=== PATIENT | male | born 1995 | race Caucasian/White ===

== ENCOUNTER 2020-09-19 04:44 | Emergency (ER) | payer SELFPAY ==
[2020-09-19] MEDS ORDERED: Bupivacaine PF 0.5% 30 ML VIAL ONE (04:54)
[2020-09-19] MEDS ORDERED: Bacitracin 1 PK ONE (05:12)
== END 2020-09-19 05:38 | disposition home or self-care (01) ==
LOC: CSHERS 04:44
DX: S41.112A Laceration without foreign body of left upper arm, initial encounter (principal); F17.290 Nicotine dependence, other tobacco product, uncomplicated; W26.0XXA Contact with knife, initial encounter
CPT/HCPCS: 12004; S0020

== ENCOUNTER 2020-09-26 12:50 | Emergency (ER) | payer SELFPAY ==
[2020-09-26 22:30] LABS: SARS-CoV-2 PCR by NAA Not Detected (NotDetected)
== END 2020-09-26 13:20 | disposition home or self-care (01) ==
LOC: CSHERS 12:50
DX: S51.812D Laceration without foreign body of left forearm, subsequent encounter (principal); Z20.822 Contact with and (suspected) exposure to COVID-19; F17.290 Nicotine dependence, other tobacco product, uncomplicated
CPT/HCPCS: 87635; 99283; U0003; U0005

== ENCOUNTER 2021-11-07 10:35 | Emergency (ER) | payer SELFPAY ==
[2021-11-07] MEDS ORDERED: Dicyclomine 20 MG/2 ML VIAL ONE (12:26)
[2021-11-07] MEDS ORDERED: Ondansetron PF 4 MG/2 ML Vial ONE (12:26)
[2021-11-07 12:50] LABS: #Basophils 0.1 10x3/uL (0.0-0.2); #Eosinphils 0.3 10x3/uL (0.0-0.5); #Monocytes 0.7 10x3/uL (0.0-1.1); #Neutrophils 9.8 10x3/uL (1.5-8.4); %Basophils 0.6 % (0.0-2.0); %Eosinophils 1.8 % (0.0-6.0); %Lymphocytes 23.4 % (18.0-47.0); %Monocytes 5.2 % (0.0-10.0); %Neutrophils 68.6 % (40.0-75.0); Mean Corpuscular HGB CONC 34.2 g/dL (32.0-36.0); Mean Corpuscular Hemoglobin 28.7 pg (27.0-33.0); Mean Corpuscular Volume 84.1 fl (81.2-95.1); Mean Platelet Volume 9.8 fl (7.4-10.4); Platelet Count 265 10x3/uL (150-450); RBC Distribution Width 12.3 % (11.5-14.5); Red Blood Cell (RBC) Count 6.27 10x6/uL (4.32-5.72); White Blood Cell (WBC) Count 14.3 10x3/uL (3.5-10.5)
[2021-11-07 12:54] LABS: ALT (SGPT) 27 U/L (8-55); AST (SGOT) 14 U/L (5-34); Albumin 4.2 g/dL (3.5-5.0); Alkaline Phosphatase 80 U/L (40-110); Anion Gap 16 mmol/L (10-20); BUN (Urea Nitrogen) 8 mg/dL (8.9-20.6); Bilirubin, Total 0.4 mg/dL (0.2-1.2); Calc. Creatinine Clearance 0 mL/min (70-130); Calcium 9.2 mg/dL (7.8-10.44); Carbon Dioxide 24 mmol/L (22-29); Chloride 105 mmol/L (98-107); Globulin 2.3 g/dL (2.4-3.5); Glucose 94 mg/dL (70-105); Lipase 90 U/L (8-78); Potassium 3.8 mmol/L (3.5-5.1); Protein, Total 6.5 g/dL (6.0-8.3); Sodium 141 mmol/L (136-145)
[2021-11-07 13:50] LABS: Bilirubin Neg (Negative); Blood, Urine Negative (Negative); Clarity Clear (Clear); Glucose, Urine (Dipstick) Normal (Negative); Ketone, Urine Negative (Negative); Leukocyte Negative (Negative); Nitrite Negative (Negative); Protein, Urine (Dipstick) Negative (Neg-Trace); Urobilinogen Normal mg/dL (Less than 2)
== END 2021-11-07 14:20 | disposition home or self-care (01) ==
LOC: CSHERS 10:35
DX: R11.2 Nausea with vomiting, unspecified (principal); R10.9 Unspecified abdominal pain; R19.7 Diarrhea, unspecified; F17.290 Nicotine dependence, other tobacco product, uncomplicated
CPT/HCPCS: 80053; 81003; 83690; 85025; 96361; 96372; 96374; J0500; J2405

== ENCOUNTER 2021-12-22 19:51 | Emergency (ER) | payer OTHER, SELFPAY | END 2021-12-22 21:44 | disposition home or self-care (01) | LOC: CSHERS 19:51 | DX: S50.11XA Contusion of right forearm, initial encounter (principal); F17.290 Nicotine dependence, other tobacco product, uncomplicated; W01.0XXA Fall on same level from slipping, tripping and stumbling without subsequent striking against object, initial encounter ==

== ENCOUNTER 2022-03-26 03:53 | Emergency (ER) | payer SELFPAY | END 2022-03-26 04:41 | disposition home or self-care (01) | LOC: CSHERS 03:53 | DX: S01.111A Laceration without foreign body of right eyelid and periocular area, initial encounter (principal); F17.290 Nicotine dependence, other tobacco product, uncomplicated; W10.9XXA Fall (on) (from) unspecified stairs and steps, initial encounter | CPT/HCPCS: 12013 ==

== ENCOUNTER 2022-08-23 11:48 | Emergency (ER) | payer SELFPAY | END 2022-08-23 13:42 | disposition home or self-care (01) | LOC: CSHERS 11:48 | DX: J10.1 Influenza due to other identified influenza virus with other respiratory manifestations (principal); F17.290 Nicotine dependence, other tobacco product, uncomplicated | CPT/HCPCS: 71045; 87804; U0003; U0005 ==

== ENCOUNTER 2023-01-18 07:22 | Emergency (ER) | payer SELFPAY ==
[2023-01-18] MEDS ORDERED: Acetaminophen 325 MG TAB ONE (07:55)
[2023-01-18 09:18] LABS: SARS-CoV-2 NAA Rapid Test DETECTED (NotDetected)
== END 2023-01-18 09:42 | disposition home or self-care (01) ==
LOC: CSHERS 07:22
DX: U07.1 COVID-19 (principal); F17.290 Nicotine dependence, other tobacco product, uncomplicated
CPT/HCPCS: 87081; 87430; 99283

== ENCOUNTER 2023-04-24 08:07 | Emergency (ER) | payer SELFPAY ==
[2023-04-24 09:05] LABS: SARS-CoV-2 NAA Rapid Test Not Detected (NotDetected)
[2023-04-24] MEDS ORDERED: Naproxen 500 MG TAB ONE (09:25)
== END 2023-04-24 09:36 | disposition home or self-care (01) ==
LOC: CSHERS 08:07
DX: J11.1 Influenza due to unidentified influenza virus with other respiratory manifestations (principal); Z20.822 Contact with and (suspected) exposure to COVID-19; F17.290 Nicotine dependence, other tobacco product, uncomplicated
CPT/HCPCS: 99283